=== PATIENT | male | born 1940 | race Caucasian/White ===

== ENCOUNTER 2018-12-31 16:43 | Emergency (ER) | payer MEDICARE, OTHER | END 2018-12-31 18:53 | disposition home or self-care (01) | LOC: FTE 16:43 | DX: S09.90XA Unspecified injury of head, initial encounter (principal); R51 Headache; W22.09XA Striking against other stationary object, initial encounter; Y92.9 Unspecified place or not applicable | CPT/HCPCS: 70450; 99284-25 ==